=== PATIENT | female | born 1995 | race Caucasian/White ===

== ENCOUNTER 2021-03-07 18:45 | Outpatient (REF) | payer BC, SELFPAY ==
[2021-03-07 21:16] LABS: HCT 40.8 % (36.0-46.0); HGB 13.2 g/dL (11.2-15.7); MCH 29.1 pg (27.0-33.0); MCHC 32.4 % (32.0-36.0); MCV 89.9 fL (80-95); MPV 11.5 fL (8.0-11.0); Platelet Count 233 10^3/uL (130-400); RBC 4.54 10^6/uL (3.93-5.22); RDW 13.2 % (11.7-14.6); RDW-SD 43.3 fL; WBC 8.89 10^3/uL (4.4-10.8)
[2021-03-07 21:50] LABS: ALT 26 U/L (14-59); AST 14 U/L (15-37); Albumin 4.4 g/dL (3.4-5.0); Alkaline Phosphatase 82 U/L (46-116); Anion Gap 10.7 mmol/L (3-11); BUN 10 mg/dL (7-18); Bilirubin, Total 0.4 mg/dL (0.2-1.0); CO2 25.3 mmol/L (21.0-32.0); CREATININE 0.9 mg/dL (0.55-1.02); Calcium 9.1 mg/dL (8.5-10.1); Chloride 100 mmol/L (98-107); Glucose 96 mg/dL (74-106); Potassium 3.8 mmol/L (3.5-5.1); Sodium 136 mmol/L (136-145); TSH (W/Ref FT4) 1.83 uIU/mL (0.36-3.74)
[2021-03-08 06:47] LABS: Vitamin D 25 Total 15.4 ng/mL (30-100)
[2021-03-09 09:38] LABS: HBs Antibody, Quant 17.2 mIU/mL (See Note); Hepatitis B Surface Ab Positive (See Note)
[2021-03-09 10:11] LABS: Hepatitis C Ab w Rflx HCV PCR Negative (Negative)
[2021-03-09 10:28] LABS: HIV-1/2 Ag & Ab Screen Negative (Negative)
[2021-03-09 21:16] LABS: Chlamydia Result Negative (Negative); GC Result Negative (Negative)
== END 2021-03-07 18:46 | disposition home or self-care (01) ==
LOC: NCHCN 18:45
PROVIDERS: PCP Family Medicine; Visit Provider Nurse Practitioner Family
DX: F41.8 Other specified anxiety disorders (principal); Z00.00 Encounter for general adult medical examination without abnormal findings; Z11.4 Encounter for screening for human immunodeficiency virus [HIV]; Z11.59 Encounter for screening for other viral diseases; Z11.3 Encounter for screening for infections with a predominantly sexual mode of transmission
CPT/HCPCS: 80053; 82306; 85027; 86706; 86803; 87389; 87491; 87591; 84443

== ENCOUNTER 2021-04-11 18:13 | Outpatient (REF) | payer BC, SELFPAY ==
[2021-04-13 15:21] LABS: Chlamydia Result Negative (Negative); GC Result Negative (Negative)
== END 2021-04-11 18:14 | disposition home or self-care (01) ==
LOC: NCHCN 18:13
PROVIDERS: PCP Family Medicine; Visit Provider Nurse Practitioner Family
DX: Z11.3 Encounter for screening for infections with a predominantly sexual mode of transmission (principal)
CPT/HCPCS: 87491; 87591

== ENCOUNTER 2022-03-28 17:06 | Outpatient (REF) | payer SELFPAY ==
[2022-03-28 21:27] LABS: Bacteria Rare HPF (Negative); Casts Negative LPF (Negative); Crystals Negative HPF (Negative); Epithelial Cells Few HPF (Negative); Mucus Negative (Negative); Other Cells Negative (Negative)
[2022-03-29 06:17] LABS: C & S Indicated? C&S Done As Ordered
[2022-03-30 12:43] LABS: Chlamydia Result Negative (Negative); GC Result Negative (Negative)
== END 2022-03-28 17:07 | disposition home or self-care (01) ==
LOC: NCHCN 17:06
PROVIDERS: PCP Family Medicine; Visit Provider Internal Medicine
DX: R30.9 Painful micturition, unspecified (principal)
CPT/HCPCS: 87077; 87491; 87591; 81015; 87086; 87186